=== PATIENT | male | born 1940 | race Caucasian/White ===

== ENCOUNTER 2016-07-14 19:41 | Emergency (ER) | payer OTHER, MEDICARE ==
[~2016-07-14] VITALS: Ht 177.8 cm; Wt 122.5 kg
--- NOTE | ~2016-07-14 | EKG ---
[place] [address] [facility] [place] [address] ELECTROCARDIOGRAM REPORT Name: JAGUAR SAMANO [facility]: [id number] Admission: 07/14/16 Attend Phys: Discharge: 07/14/16 Date of : 42 Report #: [id number] THIS REPORT FOR: //name// 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: Truck Crane Operator Helper: CHANDRA : 1940 Requested By: Divya De La Rosa Order Number: [id number] MD: Stevie Charlton Measurements Intervals [place] Rate: 112 P: 117 [place]: 205 QRS: 217 QRSD: 291 T: QT: QTc: 0 Interpretive Statements Ventricular-paced complexes No further analysis attempted due to paced rhythm Compared to ECG 04/29/2015 07:24:13 No significant changes Electronically Signed On 07-15-2016 15:09:31 CDT by Stevie Charlton [email or web address] <ELECTRONICALLY SIGNED> By: Stevie Charlton MD, [facility] 07/15/16 1509 41 41 Stevie Charlton MD, FACC /EPI
[~2016-07-14 19:41] MED LIST: ALDACTONE25 MG PO; AMLODIPINE BESY10 MG PO; ATORVASTATIN CA40 MG PO; AVAPRO300 MG PO; BYSTOLIC 5 MG5 M1 PO; COREG25 MG PO; FENOFIBRATE160 MG PO; FUROSEMIDE 40 M40 M1 PO; HYTRIN 2MG CAPSU2 MG PO; NORCO 5-325 TA1 EACH PO; TERAZOSIN HCL10 MG PO; UNKNOWN BP MED; UNKNOWN CHOLESTEROL; UNKNOWN DIURETIC
[2016-07-14] MEDS ORDERED: PERCOCET 5-3251 EACH PO (19:43)
[2016-07-14 20:48] LABS: BASOPHILS 0.5 % (0.0-2.0); EOSINOPHILS 2.5 % (0.0-3.0); HEMATOCRIT 41.2 % (42.0-52.0); HEMOGLOBIN 14.1 gm/dL (14.0-18.0); LYMPHOCYTES 25.9 % (24.0-44.0); MCH 31.8 pg (26.0-34.0); MCHC 34.1 g/dL (28.0-37.0); MCV 93.3 fL (80.0-100.0); MONOCYTES 7.7 % (1.0-8.0); PLATELET COUNT 188 thou/uL (150-400); POLYS 63.4 % (36.0-66.0); RBC 4.42 mil/uL (4.50-6.00); WBC 9.4 thou/uL (4.0-11.0)
[2016-07-14 20:49] LABS: MANUAL DIFF NO
[2016-07-14 20:50] LABS: ANION GAP 9 mmol/L (7-16); BUN 22 mg/dL (7-18); CALCIUM 9.2 mg/dL (8.5-10.1); CHLORIDE 105 mmol/L (98-107); CO2 26 mmol/L (21-32); CREATININE 1.2 mg/dL (0.7-1.3); GLUCOSE 125 mg/dL (74-106); POTASSIUM 4.4 mmol/L (3.5-5.1); SODIUM 140 mmol/L (136-145)
[2016-07-14] MEDS ORDERED: ALDACTONE25 MG PO (20:51)
[2016-07-14 21:01] LABS: ALBUMIN 3.5 g/dL (3.4-5.0); ALKALINE PHOSPHATASE 63 U/L (46-116); NT-PRO BRAIN NAT PEPTIDE 171 pg/mL (<300); SGOT 16 U/L (15-37); SGPT 29 U/L (30-65); TOTAL BILIRUBIN 0.3 mg/dL (<0.1-1.0); TOTAL PROTEIN 7.5 g/dL (6.4-8.2); TROPONIN-I < 0.04 ng/mL (<0.04-0.07)
[2016-07-14 21:06] LABS: APTT 27.8 Seconds (24.5-32.8); PROTIME 10.3 Seconds (9.3-11.4)
[2016-07-14] MEDS ORDERED: MECLIZINE HCL25 MG PO (21:44)
== END 2016-07-14 22:05 | disposition home or self-care (01) ==
LOC: ER 19:41
PROVIDERS: Emergency Medicine
DX: R42 Dizziness and giddiness (principal); R53.83 Other fatigue; I10 Essential (primary) hypertension; I50.9 Heart failure, unspecified; I25.10 Atherosclerotic heart disease of native coronary artery without angina pectoris; I44.7 Left bundle-branch block, unspecified; G50.0 Trigeminal neuralgia; Z85.828 Personal history of other malignant neoplasm of skin

== ENCOUNTER 2017-12-21 16:00 | Emergency (ER) | payer OTHER, MEDICARE ==
[~2017-12-21] VITALS: Ht 180.3 cm; Wt 108.9 kg
[~2017-12-21 16:00] MED LIST changes: +CARBAMAZEPINE200 M5 PO; +HYDROCODON-ACE1 EAC8 PO; +MECLIZINE HCL25 MG PO; +PERCOCET 5-3251 EACH PO; +TYLENOL PM EX-1 EACH PO
[2017-12-21] MEDS ORDERED: BISACODYL SUPP10 MG RECTAL (17:19)
[2017-12-21] MEDS ORDERED: MIRALAX17 GM PO (17:19)
== END 2017-12-21 17:47 | disposition left against medical advice (07) ==
LOC: ER 16:00
DX: K59.00 Constipation, unspecified (principal); I11.0 Hypertensive heart disease with heart failure; I50.9 Heart failure, unspecified; I42.9 Cardiomyopathy, unspecified; I25.10 Atherosclerotic heart disease of native coronary artery without angina pectoris; E78.5 Hyperlipidemia, unspecified; I44.7 Left bundle-branch block, unspecified; E66.9 Obesity, unspecified; Z68.33 Body mass index [BMI] 33.0-33.9, adult

== ENCOUNTER 2018-01-22 15:00 | Emergency (ER) | payer OTHER, MEDICARE ==
[~2018-01-22] VITALS: Ht 180.3 cm; Wt 108.9 kg
--- NOTE | ~2018-01-22 | EKG ---
[address] [place] [address] ELECTROCARDIOGRAM REPORT Name: JAGUAR SAMANO [facility]: [facility] [id number] Admission: 01/22/18 Attend Phys: Discharge: 01/22/18 Date of : 42 Report #: [id number] THIS REPORT FOR: //name// [facility] ED Test Date: 2018-01-22 Test Time: 17:56:58 Pat Name: JAGUAR SAMANO Department: Room: Gender: Strategy Consultant: : 1940 Requested By: Li Quezada Order Number: [id number] MD: Stevie Charlton Measurements Intervals [place] Rate: 69 P: 43 FL: 183 QRS: 185 QRSD: 188 T: 39 QT: 479 QTc: 514 Interpretive Statements Atrial-sensed ventricular-paced rhythm No further analysis attempted due to paced rhythm Compared to ECG 12/17/2017 07:32:55 No significant changes Electronically Signed On 01-23-2018 8:49:22 CDT by Stevie Charlton [email or web address] <ELECTRONICALLY SIGNED> By: Stevie Charlton MD, [facility] 01/23/18 0849 55 55 Stevie Charlton MD, FACC /EPI
[~2018-01-22 15:00] MED LIST changes: +BISACODYL SUPP10 MG RECTAL; +MIRALAX17 GM PO
[2018-01-22] MEDS ORDERED: EDARBYCLOR 40-1 EACH PO (15:07)
[2018-01-22] MEDS ORDERED: ASPIR 8181 MG PO (15:08)
[2018-01-22 16:41] LABS: ABSOLUTE NEUTROPHILS 5.5 thou/uL (1.4-8.2); BASOPHILS 0.8 % (0.0-2.0); EOSINOPHILS 1.4 % (0.0-3.0); HEMATOCRIT 42.3 % (42.0-52.0); HEMOGLOBIN 14.8 gm/dL (14.0-18.0); LYMPHOCYTES 24.1 % (24.0-44.0); MCV 94.3 fL (80.0-100.0); MONOCYTES 9.1 % (1.0-8.0); PLATELET COUNT 178 thou/uL (150-400); POLYS 64.6 % (36.0-66.0); RBC 4.49 mil/uL (4.50-6.00); RDW 13.9 % (10.5-14.5); WBC 8.6 thou/uL (4.0-11.0)
[2018-01-22 16:54] LABS: ANION GAP 9 mmol/L (7-16); BUN 51 mg/dL (7-18); CALCIUM 9.4 mg/dL (8.5-10.1); CHLORIDE 99 mmol/L (98-107); CO2 29 mmol/L (21-32); CREATININE 1.6 mg/dL (0.7-1.3); GLUCOSE 119 mg/dL (74-106); POTASSIUM 3.3 mmol/L (3.5-5.1); SODIUM 137 mmol/L (136-145)
[2018-01-22 17:03] LABS: TROPONIN-I <0.06 ng/mL (<0.06)
[2018-01-22 18:10] VITALS: BP 134/82
== END 2018-01-22 18:12 | disposition home or self-care (01) ==
LOC: ER 15:00
PROVIDERS: Student in an Organized Health Care Education/Training Program
DX: R42 Dizziness and giddiness (principal); T50.905A Adverse effect of unspecified drugs, medicaments and biological substances, initial encounter; I11.0 Hypertensive heart disease with heart failure; I50.9 Heart failure, unspecified; I42.8 Other cardiomyopathies; I25.10 Atherosclerotic heart disease of native coronary artery without angina pectoris; E78.5 Hyperlipidemia, unspecified; G50.0 Trigeminal neuralgia; Z85.828 Personal history of other malignant neoplasm of skin; Y92.89 Other specified places as the place of occurrence of the external cause

== ENCOUNTER 2018-06-06 09:14 | Emergency (ER) | payer OTHER, MEDICARE ==
[~2018-06-06] VITALS: Ht 180.3 cm; Wt 99.8 kg
[~2018-06-06 09:14] MED LIST changes: +ASPIR 8181 MG PO; +EDARBYCLOR 40-1 EACH PO
[2018-06-06] MEDS ORDERED: UNICOMPLEX M TA1 TA1 PO (09:40)
[2018-06-06] MEDS ORDERED: FISH OIL 1,001000 M2 PO (09:40)
[2018-06-06 10:43] LABS: ABSOLUTE NEUTROPHILS 7.5 thou/uL (1.4-8.2); BASOPHILS 0.8 % (0.0-2.0); EOSINOPHILS 0.7 % (0.0-3.0); HEMATOCRIT 40.8 % (42.0-52.0); HEMOGLOBIN 13.9 gm/dL (14.0-18.0); LYMPHOCYTES 22.7 % (24.0-44.0); MCH 33.2 pg (26.0-34.0); MCHC 34.2 g/dL (28.0-37.0); MCV 97.1 fL (80.0-100.0); MONOCYTES 9.1 % (1.0-8.0); PLATELET COUNT 220 thou/uL (150-400); POLYS 66.7 % (36.0-66.0); RDW 13.6 % (10.5-14.5); WBC 11.2 thou/uL (4.0-11.0)
[2018-06-06 10:48] LABS: URINE BILIRUBIN NEGATIVE (Negative); URINE BLOOD NEGATIVE (Negative); URINE CLARITY CLEAR; URINE COLOR YELLOW; URINE GLUCOSE-RANDOM* NEGATIVE (Negative); URINE KETONES NEGATIVE (Negative); URINE LEUKOCYTES-REFLEX NEGATIVE (Negative); URINE NITRITE-REFLEX NEGATIVE (Negative); URINE PROTEIN (DIPSTICK) NEGATIVE (Negative); URINE UROBILINOGEN 0.2 E.U./dl (0.2-1.0)
[2018-06-06 10:55] LABS: ANION GAP 6 mmol/L (7-16); BUN 35 mg/dL (7-18); CALCIUM 9.3 mg/dL (8.5-10.1); CHLORIDE 99 mmol/L (98-107); CO2 33 mmol/L (21-32); CREATININE 1.5 mg/dL (0.7-1.3); GLUCOSE 111 mg/dL (74-106); SODIUM 138 mmol/L (136-145)
[2018-06-06 11:04] LABS: ALBUMIN 3.5 g/dL (3.4-5.0); MAGNESIUM 1.9 mg/dL (1.8-2.4); SGOT 19 U/L (15-37); SGPT 24 U/L (30-65); TOTAL BILIRUBIN 0.4 mg/dL (<0.1-1.0); TOTAL PROTEIN 7.5 g/dL (6.4-8.2); TROPONIN-I <0.06 ng/mL (<0.06)
[2018-06-06] MEDS ORDERED: ZPAK PO (11:25)
[2018-06-06] MEDS ORDERED: KLOR-CON 1010 MEQ PO (11:39)
[2018-06-06 12:02] VITALS: BP 124/71
--- NOTE | 2018-06-08 13:21 | EKG ---
[facility] [place] [address] ELECTROCARDIOGRAM REPORT Name: JAGUAR SAMANO [facility]: [facility] [id number] ������������������ Admission: 06/06/18 ������������������ Attend Phys: Discharge: 06/06/18 ������������������ Date of : 42 Report #: [id number] ����������������������������������������������������������������� [id number] THIS REPORT FOR: //name// [facility] ED Test Date: 2018-06-06 Test Time: 11:11:28 Pat Name: JAGUAR SAMANO Department: Room: Gender: Waiter/Waitress Head: SANDYWVLUZ : 1940 Requested By: Aldo Dobbins Order Number: [id number] MD: Stevie Charlton Measurements Intervals [place] Rate: 73 P: -9 [place]: 177 QRS: 184 QRSD: 182 T: 96 QT: 482 QTc: 532 Interpretive Statements Atrial-sensed ventricular-paced complexes No further analysis attempted due to paced rhythm Baseline wander in lead(s) V2 Compared to ECG 01/22/2018 17:56:58 No significant changes Electronically Signed On 06-08-2018 13:21:12 CDT by Stevie Charlton [email or web address] ��������������������������������������������� <ELECTRONICALLY SIGNED> ���������������������������������������� By: Stevie Charlton MD, FACC ��������������������������������������������� 06/08/18 1321 1111 1111 Stevie Charlton MD, [facility] /EPI
== END 2018-06-06 12:02 | disposition home or self-care (01) ==
LOC: ER 09:14
PROVIDERS: Emergency Medicine
DX: J18.9 Pneumonia, unspecified organism (principal); E87.6 Hypokalemia; D72.829 Elevated white blood cell count, unspecified; I11.0 Hypertensive heart disease with heart failure; I50.9 Heart failure, unspecified; E78.5 Hyperlipidemia, unspecified; E66.9 Obesity, unspecified; Z68.30 Body mass index [BMI] 30.0-30.9, adult

== ENCOUNTER 2018-11-19 20:26 | Emergency (ER) | payer OTHER, MEDICARE ==
[~2018-11-19] VITALS: Ht 180.3 cm; Wt 108.9 kg
[~2018-11-19 20:26] MED LIST changes: +FISH OIL 1,001000 M2 PO; +KLOR-CON 1010 MEQ PO; +UNICOMPLEX M TA1 TA1 PO; +ZPAK PO
[2018-11-19] MEDS ORDERED: IRON325 PO (21:01)
[2018-11-19 22:52] VITALS: BP 156/72
[2018-11-19] MEDS ORDERED: CLONIDINE0.1 PO (23:08)
--- NOTE | 2018-11-20 08:39 | EKG ---
[place] [address] [facility] [place] [address] ELECTROCARDIOGRAM REPORT Name: JAGUAR SAMANO [facility]: [facility] [id number] Admission: 11/19/18 Attend Phys: Discharge: 11/19/18 Date of : 42 Report #: [id number] THIS REPORT FOR: //name// [facility] ED Test Date: 2018-11-19 Test Time: 22:09:34 Pat Name: JAGUAR SAMANO Department: Room: Gender: Manager Client Support: ZOIE : 1940 Requested By: Aldo Dobbins Order Number: [id number] MD: Filiberto Guerrero Measurements Intervals [place] Rate: 74 P: 9 IA: 178 QRS: 213 QRSD: 170 T: 93 QT: 433 QTc: 481 Interpretive Statements Atrial-sensed ventricular-paced rhythm No further analysis attempted due to paced rhythm Compared to ECG 06/06/2018 11:11:28 No significant changes Electronically Signed On 11-20-2018 8:39:16 CDT by Filiberto Guerrero [email or web address] <ELECTRONICALLY SIGNED> By: Filiberto Guerrero MD 11/20/18 0839 08 08 Filiberto Guerrero MD /LADI
== END 2018-11-19 23:00 | disposition home or self-care (01) ==
LOC: ER 20:26
DX: I11.0 Hypertensive heart disease with heart failure (principal); I50.9 Heart failure, unspecified; I42.9 Cardiomyopathy, unspecified; I25.10 Atherosclerotic heart disease of native coronary artery without angina pectoris; E78.5 Hyperlipidemia, unspecified; E66.9 Obesity, unspecified; Z68.33 Body mass index [BMI] 33.0-33.9, adult

== ENCOUNTER 2019-02-15 07:26 | Emergency (ER) | payer OTHER, MEDICARE ==
[~2019-02-15] VITALS: Ht 177.8 cm; Wt 111.1 kg
[~2019-02-15 07:26] MED LIST changes: +CLONIDINE0.1 PO; +IRON325 PO
[2019-02-15 07:44] VITALS: BP 175/79
== END 2019-02-15 07:57 | disposition home or self-care (01) ==
LOC: ER 07:26
DX: R09.81 Nasal congestion (principal); I11.0 Hypertensive heart disease with heart failure; I50.9 Heart failure, unspecified; I25.10 Atherosclerotic heart disease of native coronary artery without angina pectoris; E66.9 Obesity, unspecified; Z68.35 Body mass index [BMI] 35.0-35.9, adult

== ENCOUNTER 2019-03-09 12:18 | Inpatient (IN) | payer OTHER, MEDICARE ==
[~2019-03-09] VITALS: Ht 180.3 cm; Wt 111.1 kg
--- NOTE | ~2019-03-09 | HC ---
[facility] [place] [address] CONSULTATION Name: JAGUAR SAMANO Room #: 215-P ADM IN M.R.#: [id number] Admission: 03/09/19 Attend Phys: Sam Fall MD Discharge: Date of : 42 Report #: [id number] THIS REPORT FOR: //name// CC: Sam ALVARENGA unknown DATE OF SERVICE: 03/10/2019 HISTORY OF PRESENT ILLNESS: This is a 78-year-old male patient who was seen by me for altered mental status. The patient gives a history that he is on carbamazepine for the trigeminal neuralgia for a long period of time. He messed up the dosages and he became confused and now he is better. There is nobody else is here, so it is very difficult to confirm the history. He said he has a pacemaker, which is incompatible with MRI. REVIEW OF SYSTEMS: Positive for trigeminal neuralgia. He believes that happens in relation to taking the wrong medication. He feels back to his baseline now. He has a history of taking other medications including opioids. He does have some kidney problems. This was his relevant 14-point review of system, which was carried out. PAST MEDICAL HISTORY: Positive for trigeminal neuralgia. He does not know the name of his neurologist, but he has one. He said even gamma knife was tried on him, but then they decided not to do the gamma knife on him. He had an episode of syncope, the etiology of which was not clear. FAMILY HISTORY: Unremarkable. SOCIAL HISTORY: He denies that he abuses any alcohol. PHYSICAL EXAMINATION: NEUROLOGIC: Indicates he is alert, responsive. His memory does look somewhat poor. His fund of knowledge is also poor. His cranial nerve examination and neuromuscular examinations appear unremarkable. It appeared to be symmetrical. There is no meningeal sign. There is no carotid bruit. VITAL SIGNS: His blood pressure is 122/55, respirations 16, pulse is 70, and temperature is 98.7. LABORATORY DATA: His white count is normal at 7.5. He did have a CT scan of the head, which did not show any definite abnormality. IMPRESSION AND PLAN: The patient with trigeminal neuralgia who claims that he had some altered mental status when he took the wrong medications and the wrong dosages. He does not think he needs any further workup. Rather he told me that he is convinced it is a medication and he will not like to have the further [facility] [address] [place] [address] CONSULTATION Name: JAGUAR SAMANO Room #: 215-P [facility] IN M.R.#: [id number] Admission: 03/09/19 Attend Phys: Sam Fall MD Discharge: Date of : 41 Report #: [id number] testing. I will talk to you tomorrow. I think it may be the best is to send him back to his own neurologist in that circumstance. By: 2053 0022 Sergio Christopher MD /nt
[2019-03-09 12:19] VITALS: BP 120/59
[2019-03-09 12:49] LABS: ABSOLUTE NEUTROPHILS 5.8 thou/uL (1.4-8.2); BASOPHILS 0.6 % (0.0-2.0); HEMATOCRIT 45.3 % (42.0-52.0); HEMOGLOBIN 15.4 gm/dL (14.0-18.0); LYMPHOCYTES 19.4 % (24.0-44.0); MCH 32.7 pg (26.0-34.0); MONOCYTES 9.2 % (1.0-8.0); PLATELET COUNT 167 thou/uL (150-400); POLYS 70.8 % (36.0-66.0); RBC 4.71 mil/uL (4.50-6.00); RDW 13.5 % (10.5-14.5); WBC 8.1 thou/uL (4.0-11.0)
[2019-03-09 12:53] LABS: ANION GAP 8 mmol/L (7-16); BUN 60 mg/dL (7-18); CALCIUM 9.5 mg/dL (8.5-10.1); CHLORIDE 100 mmol/L (98-107); CO2 33 mmol/L (21-32); CREATININE 2.2 mg/dL (0.7-1.3); GLUCOSE 132 mg/dL (74-106); SODIUM 141 mmol/L (136-145)
--- NOTE | 2019-03-09 12:56 | NUR ---
PT. CAREGIVER/ROOMMATE AT BEDSIDE WITH INFORMATION REGARDING PT. VISIT TO ER TODAY. PT. MAY HAVE POSSIBLY MIXED UP, NOT TAKEN OR TAKEN TOO MUCH OF HIS DAILY MEDICATION. PT. CAREGIVER/ROOMMATE REPORTS PT. PREFERS TO ORGANIZE HIS MEDS. VS HAVING OTHERS HELP WITH ADMINISTRATION. IN THE PAST, PT. HAS STOPPED TAKING MEDS. IF HE FELT HE NO LONGER NEEDED TO TAKE THE MEDICATION. AT THIS TIME, NO MED. LIST IS AVAILABLE TO THE STAFF. PT. ON CART, ON MONITOR. ORDERS RECEIVED AND CARRIED OUT.
[2019-03-09 13:04] LABS: ALBUMIN 3.9 g/dL (3.4-5.0); SGOT 13 U/L (15-37); SGPT 23 U/L (30-65); TOTAL BILIRUBIN 0.5 mg/dL (<0.1-1.0); TOTAL PROTEIN 7.9 g/dL (6.4-8.2); TROPONIN-I <0.06 ng/mL (<0.06)
--- NOTE | 2019-03-09 14:16 | NUR ---
PT. PACEMAKER INTERROGATION COMPLETED, AND REPORT RECEIVED AND PROVIDED TO ANN DOMINGUEZ.
[2019-03-09] MEDS ORDERED: CARBAMAZEPINE200 M2 PO (14:57)
[2019-03-09] MEDS ORDERED: LIPITOR40 MG PO ×2 (14:58→16:48)
[2019-03-09] MEDS ORDERED: FUROSEMIDE 20 M20 M1 PO (14:58)
[2019-03-09 15:31] VITALS: BP 101/50
[2019-03-09 15:42] VITALS: BP 128/66
[2019-03-09 16:15] VITALS: BP 142/72
[2019-03-09] MEDS ORDERED: DEMADEX20 MG PO (16:40)
[2019-03-09] MEDS ORDERED: COREG25 M1 PO (16:41)
[2019-03-09] MEDS ORDERED: VITAMIN B-121000 MC2 PO (16:42)
[2019-03-09] MEDS ORDERED: FUROSEMIDE 40 M40 M1 PO (16:43)
[2019-03-09] MEDS ORDERED: ASPIR 8181 M1 PO (16:47)
[2019-03-09] MEDS ORDERED: EDARBYCLOR 40-1 EAC1 PO (16:48)
[2019-03-09 16:49] LABS: URINE BILIRUBIN NEGATIVE (Negative); URINE BLOOD NEGATIVE (Negative); URINE CLARITY SL CLOUDY; URINE COLOR YELLOW; URINE GLUCOSE-RANDOM* NEGATIVE (Negative); URINE KETONES NEGATIVE (Negative); URINE LEUKOCYTES-REFLEX 2+ (Negative); URINE NITRITE-REFLEX NEGATIVE (Negative); URINE PROTEIN (DIPSTICK) NEGATIVE (Negative); URINE UROBILINOGEN 0.2 E.U./dl (0.2-1.0)
[2019-03-09] MEDS ORDERED: FLONASE 0.05%50 MCG NASAL (16:49)
[2019-03-09 16:57] LABS: CASTS None Seen /LPF (None Seen); SQUAMOUS 0-3 Few /LPF (0-3)
[2019-03-09 16:58] LABS: AMORPHOUS PHOSPHATES Moderate /LPF (None Seen); BACTERIA-REFLEX 1-9 Few /HPF (None Seen); URINE RBC 0-2 Rare /HPF (0-2)
--- NOTE | 2019-03-09 20:11 | NUR ---
PT. ARRIVED AT FLOOR CLOSE TO 1645; PT. AOX4; NO C/O PAIN; ABLE TO AMBULATE FROM STRECHER TO BED WITH ASSISTANCE; VS WNL; WAREHOUSING TECHNICIAN AT THE BED SIDE; MEDICATION INGA AROUND 1730; HOME MEDICATION UPDATE; WAREHOUSING TECHNICIAN NOTIFIED; EMAR UPDATE; ADMISSION PERFORMED; VPACED ON THE MONITOR; ABLE TO VOID IN URINAL; ASSESSMENT CHARGED; FOLLOWING POC; PASSED ON REPORT;
[2019-03-09 20:16] VITALS: BP 107/52; BP 110/57; BP 118/54
[2019-03-10 04:43] LABS: CALCIUM 8.7 mg/dL (8.5-10.1); MAGNESIUM 1.9 mg/dL (1.8-2.4); POTASSIUM 3.2 mmol/L (3.5-5.1)
[2019-03-10 04:45] VITALS: BP 156/104
[2019-03-10 04:54] LABS: ABSOLUTE NEUTROPHILS 4.8 thou/uL (1.4-8.2); BASOPHILS 0.3 % (0.0-2.0); EOSINOPHILS 0.4 % (0.0-3.0); HEMATOCRIT 43.4 % (42.0-52.0); HEMOGLOBIN 14.7 gm/dL (14.0-18.0); LYMPHOCYTES 26.5 % (24.0-44.0); MCH 33.1 pg (26.0-34.0); MCHC 33.9 g/dL (28.0-37.0); MCV 97.7 fL (80.0-100.0); MONOCYTES 8.5 % (1.0-8.0); PLATELET COUNT 169 thou/uL (150-400); POLYS 64.3 % (36.0-66.0); RBC 4.45 mil/uL (4.50-6.00); RDW 13.4 % (10.5-14.5); WBC 7.5 thou/uL (4.0-11.0)
--- NOTE | 2019-03-10 06:42 | NUR ---
ASSUMED PT CARE AT 1900. VSS. PT A&0X4. STABLE ON HIS FEET. PT EAGER TO GO HOME THIS AM. PT RESTED WELL ALL NIGHT, NO COMPLAINTS OF PAIN OR DISCOMFORT, WILL CONTINUE TO MONITOR PER POC.
[2019-03-10 08:00] VITALS: BP 130/80
--- NOTE | 2019-03-10 08:54 | EKG ---
[address] [address] ELECTROCARDIOGRAM REPORT Name: JAGUAR SAMANO Room #: 215-P ADM IN M.R.#: [id number] Admission: 03/09/19 Attend Phys: Sam Fall MD Discharge: Date of : 41 Report #: [id number] THIS REPORT FOR: //name// [facility] ED Test Date: 2019-03-09 Test Time: 12:24:35 Pat Name: JAGUAR SAMANO Department: Room: [facility] Gender: M Agricultural Education Teacher: SRIKANTH : 1940 Requested By: Agnes Choi Order Number: [id number] MD: Stevie Charlton Measurements Intervals [place] Rate: 65 P: 36 IA: 164 QRS: 221 QRSD: 181 T: 73 QT: 473 QTc: 492 Interpretive Statements Ventricular-paced complexes No further analysis attempted due to paced rhythm Compared to ECG 11/19/2018 22:09:34 No significant change was found Electronically Signed On 03-10-2019 8:54:23 HVAC DESIGN MECHANICAL ENGINEER by Stevie Charlton [email or web address] <ELECTRONICALLY SIGNED> By: Stevie Charlton MD, [facility] 03/10/19 0854 1224 1224 Stevie Charlton MD, [facility] /EPI
--- NOTE | 2019-03-10 10:06 | 2DMMODE ---
[facility] [address] [place] [address] 2 D/M-MODE ECHOCARDIOGRAM Name: JAGUAR SAMANO Room #: 215-P ADM IN M.R.#: [id number] Admission: 03/09/19 Attend Phys: Sam Fall MD Discharge: Date of : 41 Report #: [id number] THIS REPORT FOR: //name// APPROVED REPORT Study performed: 03/10/2019 09:27:05 EXAM: Comprehensive 2D, Doppler, and color-flow Echocardiogram Patient Location: Bedside Room #: 215 Status: routine BSA: 2.30 HR: 74 bpm BP: 138/80 mmHg Rhythm: Pacemaker Other Information Study Quality: Adequate Indications ICD: Syncope Cardiomyopathy Hypertension/HDD 2D Dimensions RVDd: 41.07 mm IVSd: 15.44 (7-11mm) LVOT Diam: 20.81 (18-24mm) LVDd: 57.29 mm PWd: 15.64 (7-11mm) Ascending Ao: 38.83 (22-36mm) LVDs: 47.53 (25-40mm) Aortic Root: 40.39 mm IVC: 15.00 mm Volumes Left Atrial Volume (Systole) Single Plane 4CH: 100.24 mL Single Plane 2CH: 74.93 mL LA ESV Index: 40.00 mL/m2 Aortic Valve AoV Peak Sony.: 1.33 m/s AO Peak Gr.: 7.03 mmHg LVOT Max P.18 mmHg LVOT Max V: 1.02 m/s LAWANDA Vmax: 2.62 cm2 Mitral Valve [facility] [address] [place] [address] 2 D/M-MODE ECHOCARDIOGRAM Name: JAGUAR SAMANO Room #: 215-P [facility]#: [id number] Admission: 03/09/19 Attend Phys: Sam Fall MD Discharge: Date of : 41 Report #: [id number] E/A Ratio: 0.5 MV Decel. Time: 328.22 ms MV E Max Sony.: 0.42 m/s MV A Sony.: 0.92 m/s MV PHT: 95.18 ms IVRT: 189.16 ms Pulmonary Valve PV Peak Sony.: 0.72 m/s PV Peak Gr.: 2.05 mmHg Pulmonary Vein P Vein S: 0.64 m/s P Vein A: 0.28 m/s P Vein D: 0.25 m/s P Vein A Dur.: 106.1 msec P Vein S/D Ratio: 2.56 Tricuspid Valve TR Peak Sony.: 2.50 m/s TR Peak Gr.: 24.98 mmHg PA Pressure: 30.00 mmHg Left Ventricle Left ventricle is at the upper limits of normal. There is global hypokinesis of the left ventricle. Mild to moderate concentric left ventricular hypertrophy. Left ventricular ejection fraction is moderately decreased. LVEF is 30-35%. Grade I - abnormal relaxation pattern. Right Ventricle Right ventricle is at the upper limits of normal. The right ventricular systolic function is normal. Device lead is present in the right ventricle. Atria Left atrium is dilated. Right atrium is dilated. Aortic Valve The aortic valve is normal in structure. Aortic valve is calcified. Trace to mild aortic regurgitation. There is no aortic valvular stenosis. Mitral Valve The mitral valve is normal in structure. Mild mitral regurgitation. No evidence of mitral valve stenosis. Tricuspid Valve The tricuspid valve is normal in structure. There is trace to mild [facility] [address] [place] [address] 2 D/M-MODE ECHOCARDIOGRAM Name: JAGUAR SAMANO Room #: 215-P ADM IN M.R.#: [id number] Admission: 03/09/19 Attend Phys: Sam Fall MD Discharge: Date of : 42 Report #: [id number] tricuspid regurgitation. Estimated PAP 30 mmHg. There is mild pulmonary hypertension. Pulmonic Valve The pulmonary valve is normal in structure. Trace pulmonic regurgitation. Great Vessels The aortic root is normal in size. IVC is normal in size and collapses >50% with inspiration. Pericardium There is no pericardial effusion. <Conclusion> Left ventricle is at the upper limits of normal. Mild to moderate concentric left ventricular hypertrophy. Left ventricular ejection fraction is moderately decreased. There is global hypokinesis of the left ventricle. LVEF is 30-35%. Grade I - abnormal relaxation pattern. Right ventricle is at the upper limits of normal. Device lead is present in the right ventricle. Left atrium is dilated. Right atrium is dilated. The aortic valve is normal in structure. Aortic valve is calcified. Trace to mild aortic regurgitation. Mild mitral regurgitation. There is trace to mild tricuspid regurgitation. Estimated PAP 30 mmHg. There is mild pulmonary hypertension. The aortic root is normal in size. There is no pericardial effusion. <ELECTRONICALLY SIGNED> By: Ricky Wyatt MD, FACC 03/10/19 1006 1006 1006 Ricky Wyatt MD, FACC /INF
[2019-03-10 12:23] VITALS: BP 121/64
--- NOTE | 2019-03-10 12:39 | NUR ---
ORDERS RECEIVED FOR EVAL AND TREAT. SPOKE WITH Pt WHO STATES HAVING NO DIFFICULTY WITH MOBILITY AND DOES NOT FEEL WEAK. STATES HE IS NOT DIZZY AND HE DID NOT FAINT. OBSERVED Pt STAND AND AMBULATE IN ROOM WITHOUT DIFFICULTY. Pt DECLINING FORMAL P.T. EVAL BUT APPEARS SAFE FOR HOME WITH MEDICALLY CLEAR.
[2019-03-10 16:00] VITALS: BP 142/75
--- NOTE | 2019-03-10 17:49 | NUR ---
PT ALERT AND ORIENTED. VSS. DENIED HAVING PAIN OR DISCOMFORT. SEEN BY DR. ROSS AND DR. HUNT. ORDERS NOTED. WILL CONTINUE TO MONITOR.
[2019-03-10 19:46] VITALS: BP 120/55
[2019-03-10 23:44] LABS: AMP/METHAMP Negative (Negative); BARBITURATES Negative (Negative); BENZODIAZEPINES Negative (Negative); COCAINE Negative (Negative); METHADONE Negative (Negative); OPIATES Negative (Negative); PCP Negative (Negative)
--- NOTE | 2019-03-11 01:39 | NUR ---
ASSESSMENTS CHARTED, MEDS NOTED GIVEN. PATIENT CAME IN TODAY AFTER SYNCOPAL EPISODE AT HOME. FEELS MEMORY IS FUZZY, CAN NOT ALWAYS REMEMBER NAMES AND PEOPLE. FEELS THAT HIS MEDICINES ARE MAKING HIM UNABLE TO REMEMBER SITUATIONS. PATIENT LIVES AT HOME WITH A CAREGIVER. PT AV PACED ON TELEMETRY. PATIENT HAS AN ICD, WHICH WAS INTERIGATED YESTERDAY BY [employer]. PATIENT UP AT YARON IN ROOM. DENIES PAIN OR CONCERNS OTHER THAN FEELIING CONSTIPATED. LAXATIVE GIVEN CHARTED. PLAN OF CARE IS FOR PATIENT TO RETURN HOME ONCE IT IS ESTABLISHED THAT HE IS COGNITIVELY STABLE.
[2019-03-11 04:45] VITALS: BP 144/74
[2019-03-11 08:47] LABS: CALCIUM 8.9 mg/dL (8.5-10.1); CREATININE 1.6 mg/dL (0.7-1.3); POTASSIUM 3.6 mmol/L (3.5-5.1)
[2019-03-11 09:01] VITALS: BP 119/88
[2019-03-11 10:26] VITALS: BP 119/88
--- NOTE | 2019-03-11 10:29 | NUR ---
Case opened to follow for dc planning. Pt dcing home today. Director Of Religious Activities visited with the pt at bedside. He is a&ox4 and indicates that he lives independently in his own home. He owns a large estate and has a friend Rebecca who lives there and helps out with the housekeeping, laundry and shopping. She can help with taking him to the doctor and meal prep if needed. He is normally indep with gait and adl's and drives. He eats out daily. 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 He also has a joel named Betty who lives on site and cares for the property; yard work, maintinance and landscaping. Betty's girlfriend is around alot as well as and she is in the nursing field. He has 8 cats and enjoys having Rebecca and Betty around so he does not live alone. He does trust Rebecca and feels she can assist with med mngt and meal prep if needed. HH referral discussed. He is agreeable and plans to be homebound for a week or so till he follows up with Dr. Wyatt. He denies a preference. Will ask for RN and TREKKING GUIDE visits for med mngt, education, community resources should he need additional help in the future. He does not feel his friends are taking advantage of him financially but has been generous with them in the past. Referral called to [facility] as they cover his area and accept his insurance. Pt reports his friends will pick him up around 1pm today. Case discussed with the attending and the care team. All agreeable to the dc plan.
[2019-03-11 11:52] VITALS: BP 126/70
[2019-03-11 12:03] VITALS: BP 119/88
[2019-03-11] MEDS ORDERED: DULCOLAX5 MG PO (12:28)
--- NOTE | 2019-03-11 14:02 | NUR ---
ASSESSMENT CHARTED. PT ALERT AND ORIENTED. VSS. DENIED HAVING PAIN OR DISCOMFORT. ORDERS GIVEN TO DISCHARGE PT TO HOME. DISCHARGE INSTRUCTIONS GIVEN TO PT AND THE LICENSED MASTER SOCIAL WORKER WITH THE HELP FROM DR ROSS.
--- NOTE | 2019-03-11 14:14 | NUR ---
FAXED REFERRAL TO [facility]. KIMBERLY/CIRILO CONFIRMED SHE RECEIVED REFERRAL AND WILL ACCEPT PATIENT IF FOLLOWED BY A PCP. MARY/ANGEL CONFIRMED WITH YESI FRAGOSO MD THAT HE WOULD FOLLOW PATIENT HIS PCP. SPOKE TO CALI AT [facility] WITH PCP INFORMATION. DP FAXED DC SUMMARY & ORDERS TO [facility].
--- NOTE | 2019-03-11 14:22 | NUR ---
SPOKE WITH YESI FRAGOSO AT [facility], AND DR FRAGOSO WILL FOLLOW PATIENT WITH HOME HEALTH FOR NURSING AND MEDICATION MANAGEMENT.
[2019-03-11 14:23] VITALS: BP 119/88
== END 2019-03-11 14:10 | disposition home health service (06) | DRG 682 ==
LOC: ER 12:18 → EROBS 15:21 → 2N 15:21 → ENTRNSPT 03-11 13:38 → EDTRNSPTSTS 03-11 13:41 → 2N 03-11 14:10
PROVIDERS: Nurse Practitioner; Nurse Practitioner Adult Health; Physician Assistant; Psychiatry & Neurology Psychiatry; ADMIT Hospitalist
DX: N17.9 Acute kidney failure, unspecified (principal); G92 Toxic encephalopathy; N39.0 Urinary tract infection, site not specified; I42.0 Dilated cardiomyopathy; I50.22 Chronic systolic (congestive) heart failure; I25.10 Atherosclerotic heart disease of native coronary artery without angina pectoris; I11.0 Hypertensive heart disease with heart failure; E78.5 Hyperlipidemia, unspecified; E66.9 Obesity, unspecified; E87.6 Hypokalemia; G50.0 Trigeminal neuralgia; E86.0 Dehydration; E78.00 Pure hypercholesterolemia, unspecified; Z60.2 Problems related to living alone; I25.5 Ischemic cardiomyopathy; Z79.82 Long term (current) use of aspirin; Z79.899 Other long term (current) drug therapy; Z68.34 Body mass index [BMI] 34.0-34.9, adult; Z95.810 Presence of automatic (implantable) cardiac defibrillator; Z91.14 Patient's other noncompliance with medication regimen
CPT/HCPCS: 10081

== ENCOUNTER 2019-05-12 16:59 | Emergency (ER) | payer OTHER, MEDICARE ==
[~2019-05-12] VITALS: Ht 177.8 cm; Wt 108.9 kg
[~2019-05-12 16:59] MED LIST changes: +ASPIR 8181 M1 PO; +CARBAMAZEPINE200 M2 PO; +COREG25 M1 PO; +DEMADEX20 MG PO; +DULCOLAX5 MG PO; +EDARBYCLOR 40-1 EAC1 PO; +FLONASE 0.05%50 MCG NASAL; +FUROSEMIDE 20 M20 M1 PO; +LIPITOR40 MG PO; +VITAMIN B-121000 MC2 PO
[2019-05-12] MEDS ORDERED: EDARBYCLOR 40-1 EAC1 PO (19:45)
[2019-05-12] MEDS ORDERED: DEMADEX20 MG PO (19:46)
[2019-05-12] MEDS ORDERED: TESSALON PERLE100 MG PO (20:36)
[2019-05-12] MEDS ORDERED: NORCO 5-325 TA1 EAC1 PO (20:36)
[2019-05-12 21:30] VITALS: BP 132/78
== END 2019-05-12 21:30 | disposition home or self-care (01) ==
LOC: ER 16:59
DX: J06.9 Acute upper respiratory infection, unspecified (principal); I11.0 Hypertensive heart disease with heart failure; I50.9 Heart failure, unspecified; I25.10 Atherosclerotic heart disease of native coronary artery without angina pectoris; E66.9 Obesity, unspecified; Z68.34 Body mass index [BMI] 34.0-34.9, adult

== ENCOUNTER 2019-05-17 14:47 | Emergency (ER) | payer OTHER, MEDICARE ==
[~2019-05-17] VITALS: Ht 177.8 cm; Wt 111.1 kg
[~2019-05-17 14:47] MED LIST changes: +NORCO 5-325 TA1 EAC1 PO; +TESSALON PERLE100 MG PO
[2019-05-17 14:50] VITALS: BP 149/93
[2019-05-17] MEDS ORDERED: VENTOLIN HFA 1818 GM INH (17:17)
[2019-05-17] MEDS ORDERED: AZITHROMYCIN 2250 MG PO (17:17)
== END 2019-05-17 17:28 | disposition home or self-care (01) ==
LOC: ER 14:47
DX: J06.9 Acute upper respiratory infection, unspecified (principal); J98.01 Acute bronchospasm; I11.0 Hypertensive heart disease with heart failure; I50.9 Heart failure, unspecified; I25.10 Atherosclerotic heart disease of native coronary artery without angina pectoris; E66.9 Obesity, unspecified; Z68.35 Body mass index [BMI] 35.0-35.9, adult

== ENCOUNTER → 2019-05-20 | Outpatient (CLI) | payer OTHER ==
[~2019-05-20] MED LIST changes: +AZITHROMYCIN 2250 MG PO; +CEFDINIR300 MG PO; +MUCINEX600 MG PO; +PREDNISONE 20 M20 MG PO; +VENTOLIN HFA 1818 GM INH
== END ==
LOC: SJCVCIMAG 11:38
DX: Z01.818 Encounter for other preprocedural examination (principal); I44.7 Left bundle-branch block, unspecified; I25.10 Atherosclerotic heart disease of native coronary artery without angina pectoris; I25.5 Ischemic cardiomyopathy; I10 Essential (primary) hypertension; E78.5 Hyperlipidemia, unspecified; Z79.899 Other long term (current) drug therapy

== ENCOUNTER 2019-05-22 16:22 | Inpatient (IN) | payer OTHER ==
[~2019-05-22] VITALS: Ht 185.4 cm; Wt 95.3 kg
[~2019-05-22 16:22] MED LIST changes: -CEFDINIR300 MG PO; -MUCINEX600 MG PO; -PREDNISONE 20 M20 MG PO
[2019-05-22 16:23] VITALS: BP 108/52
[2019-05-22 17:08] LABS: BE(vivo) 1.3 mmol/L (-2 to +3); HCO3 25.8 mmol/L (22.0-26.0); PCO2 40.7 mmHg (35.0-45.0); PO2 56.8 mmHg (80.0-100.0); sO2 90.1 % (92.0-98.0)
[2019-05-22 17:44] LABS: HEMATOCRIT 38.7 % (42.0-52.0); HEMOGLOBIN 12.9 gm/dL (14.0-18.0); MCH 32.2 pg (26.0-34.0); MCHC 33.3 g/dL (28.0-37.0); MCV 96.7 fL (80.0-100.0); PLATELET COUNT 236 thou/uL (150-400); RBC 4.01 mil/uL (4.50-6.00); RDW 13.9 % (10.5-14.5); WBC 13.8 thou/uL (4.0-11.0)
[2019-05-22 17:58] LABS: APTT 31.3 Seconds (24.5-32.8); PROTIME 10.6 Seconds (9.3-11.4)
[2019-05-22 18:10] LABS: ANION GAP 12 mmol/L (7-16); BUN 37 mg/dL (7-18); CALCIUM 9.2 mg/dL (8.5-10.1); CHLORIDE 102 mmol/L (98-107); CO2 29 mmol/L (21-32); CREATININE 1.5 mg/dL (0.7-1.3); GLUCOSE 102 mg/dL (74-106); SODIUM 143 mmol/L (136-145)
[2019-05-22 18:20] LABS: ALBUMIN 2.6 g/dL (3.4-5.0); MAGNESIUM 1.8 mg/dL (1.8-2.4); SGOT 24 U/L (15-37); SGPT 21 U/L (30-65); TOTAL BILIRUBIN 0.7 mg/dL (<0.1-1.0); TOTAL PROTEIN 7.2 g/dL (6.4-8.2); TROPONIN-I <0.06 ng/mL (<0.06)
[2019-05-22 18:32] VITALS: BP 101/59
[2019-05-22 18:32] LABS: ABSOLUTE NEUTROPHILS 11.3 thou/uL (1.4-8.2); METAMYELOCYTES 1 %
[2019-05-22 20:15] VITALS: BP 153/89
--- NOTE | 2019-05-23 00:43 | NUR ---
PT WAS ADMITTED TO THE UNIT [facility] THE ER AT APPROX 2000 IN A STABLE CONDITION.ADMISSION ASSESSMENT,HX AND EDUCATION DONE.PT STILL HAVE NON PRODUCTIVE LOOSE COUGH,CONT WITH HIS RT TX.PT UP ADLIB IN THE ROOM.PT ABLE TO MAKE HIS NEEDS KNOWN.PT'S O2 SAT WAS 90%,PT PUT ON 2L/NC.PT SLEEPING ON HIS BED AT THIS TIME.CALL LIGHT WITHIN REACH.
[2019-05-23 05:10] VITALS: BP 147/97
[2019-05-23 06:22] LABS: CALCIUM 9.3 mg/dL (8.5-10.1); CREATININE 1.4 mg/dL (0.7-1.3)
[2019-05-23 06:26] LABS: POTASSIUM 2.8 mmol/L (3.5-5.1)
[2019-05-23 08:48] VITALS: BP 145/80
[2019-05-23 11:19] VITALS: BP 145/72
[2019-05-23 12:03] LABS: CALCIUM 9.4 mg/dL (8.5-10.1); CREATININE 1.3 mg/dL (0.7-1.3); MAGNESIUM 1.5 mg/dL (1.8-2.4)
[2019-05-23 12:04] LABS: POTASSIUM 2.9 mmol/L (3.5-5.1)
--- NOTE | 2019-05-23 12:52 | EKG ---
[facility] [place] [address] ELECTROCARDIOGRAM REPORT Name: JAGUAR SAMANO Room #: 447-P ADM IN M.R.#: [id number] Admission: 05/22/19 Attend Phys: Dwayne Murillo MD Discharge: Date of : 42 Report #: [id number] THIS REPORT FOR: cc: Donato Joya James A. DO Park,Arden Brar MD ~ THIS REPORT FOR: //name// [facility] ED Test Date: 2019-05-22 Test Time: 16:39:26 Pat Name: JAGUAR SAMANO Department: Room: [facility] Gender: M Regulatory Affairs Portfolio Leader: ELIAS : 1940 Requested By: Addie Laurent Order Number: [id number] MD: Arden Daniels Measurements Intervals [place] Rate: 74 P: 41 NC: 185 QRS: 235 QRSD: 169 T: 90 QT: 437 QTc: 485 Interpretive Statements Atrial-sensed ventricular-paced complexes No further analysis attempted due to paced rhythm Baseline wander in lead(s) V2 Compared to ECG 03/09/2019 12:24:35 No significant changes Electronically Signed On 05-23-2019 12:51:52 SKIN TANNER by Arden Daniels [email or web address] <ELECTRONICALLY SIGNED> By: Arden Daniels MD 05/23/19 1251 1639 1639 Arden Daniels MD /EPI
[2019-05-23 18:03] LABS: HEMOGLOBIN 12.9 gm/dL (14.0-18.0); WBC 13.9 thou/uL (4.0-11.0)
[2019-05-23 18:05] LABS: HEMATOCRIT 39.4 % (42.0-52.0); MCH 31.9 pg (26.0-34.0); MCHC 32.7 g/dL (28.0-37.0); MCV 97.4 fL (80.0-100.0); RBC 4.04 mil/uL (4.50-6.00); RDW 13.8 % (10.5-14.5)
[2019-05-23 18:19] VITALS: BP 164/85
[2019-05-23 18:41] LABS: CALCIUM 8.9 mg/dL (8.5-10.1); CREATININE 1.3 mg/dL (0.7-1.3)
--- NOTE | 2019-05-23 19:01 | NUR ---
PT CARE ASSUMED AT 0700. A&Ox4. ACHS WITH NO COVERAGE NEEDED TODAY. PT CONTINUES TO ASK IF HE CAN GO HOME. PT O2 SATS AT 88% ON ROOM AIR. PT ON 3L AND SATING AT 94%. UP AT YARON. PACEMAKER. PT CONTINUES TO TAKE OFF HIS NASAL CANNULAT AFTER SHOWING TO HIM WITH THE DYNAMAP WHAT HIS O2 DOES WHEN ON OXYGEN. POTASSIUM CRITICAL AT 2.8 RECEIVED MULTIPLE DOSES OF K. AFTER A REDRAW K BACK UP TO 3.0. CALL LIGHT IN REACH. WILL CONTINUE TO MONITOR.
[2019-05-23 22:40] VITALS: BP 157/66
--- NOTE | 2019-05-24 02:17 | NUR ---
ASSUMED PT CARE AT APPROX 1900.PT C/O PAIN ON HIS L EAR FROM HIS TRIGEMINAL NEURALGIA,PT REQUESYED FOR IBUPROFRN,MISSION ANALYST ON DUTY NOTIFIED,ONETIME ORDER NOTED FOR 400MG OF IBUPROFEN.ORDER CARRIED OUT.PT'S NIGHT CLERK IN PT'S ROOM AT THIS TIME.PT UP ADLIB IN THE ROOM.PT CONT ON 3L/NC ,NEEDS CONSTANT REMINDER TO LEAVE OXYGEN ON.PT SLEEPING ON HIS BED AT THIS TIME,CALL LIGHT WITHIN REACH.
[2019-05-24 04:00] VITALS: BP 143/59
[2019-05-24 06:33] LABS: HEMATOCRIT 37.8 % (42.0-52.0); HEMOGLOBIN 12.4 gm/dL (14.0-18.0); MCHC 32.8 g/dL (28.0-37.0); MCV 97.6 fL (80.0-100.0); RBC 3.88 mil/uL (4.50-6.00); RDW 13.9 % (10.5-14.5); WBC 13.5 thou/uL (4.0-11.0)
[2019-05-24 06:49] LABS: CALCIUM 9.1 mg/dL (8.5-10.1); CREATININE 1.2 mg/dL (0.7-1.3); MAGNESIUM 1.6 mg/dL (1.8-2.4); POTASSIUM 3.3 mmol/L (3.5-5.1)
[2019-05-24 08:37] VITALS: BP 158/76
[2019-05-24 17:56] VITALS: BP 125/74
[2019-05-24 20:26] VITALS: BP 147/72
[2019-05-24 23:36] VITALS: BP 121/75
--- NOTE | 2019-05-25 01:09 | NUR ---
ASSESSMENT COMPLETED AT THE START OF SHIFT. PT ALERT AND ORIENTED. HE GAVE HIMSELF A SHOWER.PT REALLY ANXIOUS ABOUT GOING HOME TOMORROW. HE SAYS HE HAS ALOT HE HAS TO DO. PT NOTED TO BE AT AROUND 88-89% ON ROOM AIR. PLACED ON 02/2L/NC TO KEEP SATS ABOVE 93%. PT DENIES PAIN. TEMP OF 99.4 NOTED.PT WITH A PRODUCTIVE COUGH. NIGHT PROGRESSED, PT BECAME DIAPHORETIC, HR ELEVATED. EKG SHOWED A SINUS TACHYCARDIC RATE OF 129.PT CONVERSATIONAL. DENIES ANY CHESTPAIN OR CHEST TIGHTNESS.NO EDEMA NOTED. HOME MEDS RESTARTED. WILL GIVE PT ONE TME DOSE OF COREG WITH SOME SNACK. WILL CONTINUE WITH POC TILL EOS.
[2019-05-25 04:20] VITALS: BP 124/59
--- NOTE | 2019-05-25 08:14 | EKG ---
[facility] [place] [address] ELECTROCARDIOGRAM REPORT Name: JAGUAR SAMANO Room #: 447-P ADM IN M.R.#: [id number] Admission: 05/22/19 Attend Phys: Dwayne Murillo MD Discharge: Date of : 42 Report #: [id number] THIS REPORT FOR: cc: Donato Joya James A. DO Lundgren,Stevie Toure MD [facility] ~ THIS REPORT FOR: //name// [facility] Test Date: 2019-05-25 Test Time: 00:29:20 Pat Name: JAGUAR SAMANO Department: Room: 447 P Gender: M Press Machine Feeder: rubens : 1940 Requested By: Rosa Bower Order Number: [id number] MD: Stevie Charlton Measurements Intervals [place] Rate: 133 P: 0 NV: QRS: 91 QRSD: 207 T: 264 QT: 424 QTc: 631 Interpretive Statements Ventricular tachycardia Compared to ECG 05/22/2019 16:39:26 Wide complex tachycardia has replaced ventricular pacing Electronically Signed On 05-25-2019 8:13:09 DIGITAL HARDWARE DESIGN ENGINEER by Stevie Charlton [email or web address] <ELECTRONICALLY SIGNED> By: Stevie Charlton MD, FACC 05/25/19 0813 0029 0029 Stevie Charlton MD, [facility] /EPI
--- NOTE | 2019-05-25 08:15 | EKG ---
[facility] [place] [address] ELECTROCARDIOGRAM REPORT Name: JAGUAR SAMANO Room #: 447-P ADM IN M.R.#: [id number] Admission: 05/22/19 Attend Phys: Dwayne Murillo MD Discharge: Date of : 42 Report #: [id number] THIS REPORT FOR: cc: Donato Joya James A. DO Lundgren,Stevie Toure MD [facility] ~ THIS REPORT FOR: //name// [facility] Test Date: 2019-05-25 Test Time: 00:31:45 Pat Name: JAGUAR SAMANO Department: Room: 447 P Gender: M Virtual Customer Assistant: rubens : 1940 Requested By: Rosa Bower Order Number: [id number] MD: Stevie Charlton Measurements Intervals [place] Rate: 128 P: AR: QRS: 91 QRSD: 206 T: 263 QT: 436 QTc: 637 Interpretive Statements Ventricular tachycardia Compared to ECG 05/22/2019 16:39:26 No significant change was found Electronically Signed On 05-25-2019 8:13:54 TEACHER DRAMA by Stevie Charlton [email or web address] <ELECTRONICALLY SIGNED> By: Stevie Charlton MD, FAC 05/25/19 0813 003 Stevie Charlton MD, [facility] /EPI
[2019-05-25 08:17] VITALS: BP 96/60
--- NOTE | 2019-05-25 08:18 | EKG ---
[facility] [place] [address] ELECTROCARDIOGRAM REPORT Name: JAGUAR SAMANO Room #: 447-P ADM IN M.R.#: [id number] Admission: 05/22/19 Attend Phys: Dwayne Murillo MD Discharge: Date of : 42 Report #: [id number] THIS REPORT FOR: cc: Donato Joya James A. DO Lundgren,Stevie Toure MD [facility] ~ THIS REPORT FOR: //name// [facility] Test Date: 2019-05-25 Test Time: 00:37:07 Pat Name: JAGUAR SAMANO Department: Room: 447 P Gender: M Calender Wind Up Helper: rubens : 1940 Requested By: Rosa Bower Order Number: [id number] MD: Stevie Charlton Measurements Intervals [place] Rate: 129 P: 0 WI: QRS: 91 QRSD: 201 T: 264 QT: 428 QTc: 628 Interpretive Statements Ventricular tachycardia Compared to ECG 05/22/2019 16:39:26 No significant change was found Electronically Signed On 05-25-2019 8:17:23 VESSEL MASTER by Stevie Charlton [email or web address] <ELECTRONICALLY SIGNED> By: Stevie Charlton MD, FAC 05/25/19 0817 0037 003 Stevie Charlton MD, [facility] /EPI
[2019-05-25 09:58] LABS: CALCIUM 9.3 mg/dL (8.5-10.1); CREATININE 1.3 mg/dL (0.7-1.3); POTASSIUM 4.1 mmol/L (3.5-5.1)
--- NOTE | 2019-05-25 12:36 | NUR ---
ASSESSMENT-PT LIVES AT HOME AND HE HAS 2 OTHER PEOLE THAT LIVE WITH HIM. PT SAYS HE WALKS ON HIS OWN AND DOES HIS OWN ADLS. HE DRIVES. PT SAYS HE USES NO DME AND HAS NOT HAD ANY HH SERVICES. PT SAYS HE HAS A JAVA TECH LEAD THAT HELPS HIM NEEDED. 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 NO DC NEEDS ANTICIPATED. PT TELLS ME HE IS GOING HOME TODAY AND DENIES ANY DC NEEDS AT THIS TIME.
[2019-05-25] MEDS ORDERED: MUCINEX600 MG PO (13:23)
[2019-05-25] MEDS ORDERED: CEFDINIR300 MG PO (13:23)
[2019-05-25] MEDS ORDERED: PREDNISONE 20 M20 MG PO (13:23)
[2019-05-25 13:36] VITALS: BP 95/61
--- NOTE | 2019-05-25 14:19 | NUR ---
DR FRAGOSO HERE TO SEE PATIENT GAVE ORDER FOR [id number] MG XS 1 ALSO WANTS TO SEE PATIENT I WEEK AFTER DISCHARGE
[2019-05-25 15:42] VITALS: BP 95/61
[2019-05-25 17:34] VITALS: BP 95/61
--- NOTE | 2019-05-25 17:39 | NUR ---
PT DISCHARGED AT THIS TIME. ALL BELONGINGS PACKED AND SENT WITH PATIENT. PT GIVEN 1700 MEDS AND INHALER. PT 'S BLOOD SUGAR CHECKED WAS CHECKED NO S/S INDICATED. FRIEND THAT CAME TO HARDENING MACHINE OPERATOR HELPER STATED WOULD MAKE APPT FOR PATIENT TOMMOROW.
== END 2019-05-25 17:44 | disposition home or self-care (01) | DRG 193 ==
LOC: ER 16:22 → 4S 18:34 → EROBS 18:34 → 4S 19:51 → ENTRNSPT 05-25 17:08 → 4S 05-25 17:44
PROVIDERS: Internal Medicine; Physical Medicine & Rehabilitation; Physician Assistant; ADMIT Hospitalist
DX: J18.9 Pneumonia, unspecified organism (principal); J96.00 Acute respiratory failure, unspecified whether with hypoxia or hypercapnia; J44.1 Chronic obstructive pulmonary disease with (acute) exacerbation; I42.8 Other cardiomyopathies; I13.0 Hypertensive heart and chronic kidney disease with heart failure and stage 1 through stage 4 chronic kidney disease, or unspecified chronic kidney disease; J44.0 Chronic obstructive pulmonary disease with (acute) lower respiratory infection; D72.829 Elevated white blood cell count, unspecified; I50.9 Heart failure, unspecified; E87.6 Hypokalemia; I25.10 Atherosclerotic heart disease of native coronary artery without angina pectoris; E78.5 Hyperlipidemia, unspecified; I44.7 Left bundle-branch block, unspecified; E83.42 Hypomagnesemia; N18.2 Chronic kidney disease, stage 2 (mild); E66.9 Obesity, unspecified; G50.0 Trigeminal neuralgia; Z95.810 Presence of automatic (implantable) cardiac defibrillator; Z68.27 Body mass index [BMI] 27.0-27.9, adult; Z79.2 Long term (current) use of antibiotics; Z79.891 Long term (current) use of opiate analgesic; Z79.899 Other long term (current) drug therapy; Z79.82 Long term (current) use of aspirin
CPT/HCPCS: 10195

== ENCOUNTER → 2019-06-05 | Outpatient (CLI) | payer OTHER ==
[~2019-06-05] MED LIST changes: +CEFDINIR300 MG PO; +MUCINEX600 MG PO; +PREDNISONE 20 M20 MG PO
== END ==
LOC: SJCVC 13:57
DX: R94.31 Abnormal electrocardiogram [ECG] [EKG] (principal); I49.49 Other premature depolarization; I42.0 Dilated cardiomyopathy; I11.0 Hypertensive heart disease with heart failure; I50.9 Heart failure, unspecified; I25.10 Atherosclerotic heart disease of native coronary artery without angina pectoris; G50.0 Trigeminal neuralgia; E78.00 Pure hypercholesterolemia, unspecified; Z95.0 Presence of cardiac pacemaker; Z79.899 Other long term (current) drug therapy

== ENCOUNTER 2019-11-26 19:51 | Emergency (ER) | payer OTHER, MEDICARE ==
[~2019-11-26] VITALS: Ht 180.3 cm; Wt 108.9 kg
[2019-11-26 20:44] VITALS: BP 125/72
== END 2019-11-26 20:55 | disposition home or self-care (01) ==
LOC: ER 19:51
DX: G50.0 Trigeminal neuralgia (principal); K08.89 Other specified disorders of teeth and supporting structures; I11.0 Hypertensive heart disease with heart failure; I50.9 Heart failure, unspecified; I25.10 Atherosclerotic heart disease of native coronary artery without angina pectoris; E66.9 Obesity, unspecified; Z68.33 Body mass index [BMI] 33.0-33.9, adult; Z79.899 Other long term (current) drug therapy; Z79.2 Long term (current) use of antibiotics

== ENCOUNTER 2019-12-13 22:04 | Emergency (ER) | payer OTHER, MEDICARE ==
[~2019-12-13] VITALS: Ht 177.8 cm; Wt 108.9 kg
[2019-12-13] MEDS ORDERED: GABAPENTIN 100100 MG PO (22:16)
[2019-12-13] MEDS ORDERED: HYDROCODON-ACE1 EAC7 PO (22:18)
[2019-12-13] MEDS ORDERED: EDARBYCLOR 40-1 EAC1 PO (22:18)
[2019-12-13] MEDS ORDERED: TRAZODONE HCL50 MG PO (22:18)
[2019-12-14] VITALS: BP 183/80
--- NOTE | 2019-12-14 08:05 | EKG ---
[facility] [place] [address] ELECTROCARDIOGRAM REPORT Name: JAGUAR SAMANO Room #: [facility]P [facility].#: [id number] Admission: 12/13/19 Attend Phys: Discharge: 12/14/19 Date of : 42 Report #: [id number] THIS REPORT FOR: cc: Donato Joya James A. DO Lundgren, Craig H. 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: [facility] : 1940 Requested By: Ortega Field Order Number: [id number] MD: Stevie Charlton Measurements Intervals [place] Rate: 81 P: 59 WI: 190 QRS: 174 QRSD: 174 T: 56 QT: 465 QTc: 540 Interpretive Statements Atrial-sensed ventricular-paced rhythm No further analysis attempted due to paced rhythm Compared to ECG 05/25/2019 00:37:07 Ventricular tachycardia no longer present Electronically Signed On 12-14-2019 8:05:32 CDT by Stevie Charlton [email or web address] <ELECTRONICALLY SIGNED> By: Stevie Charlton MD, [facility] 12/14/19 0805 [id number] Stevie Charlton MD, [facility] /EPI
== END 2019-12-14 00:02 | disposition short-term general hospital (02) ==
LOC: ER 22:04
DX: S01.01XA Laceration without foreign body of scalp, initial encounter (principal); M54.6 Pain in thoracic spine; I11.0 Hypertensive heart disease with heart failure; I50.9 Heart failure, unspecified; I25.10 Atherosclerotic heart disease of native coronary artery without angina pectoris; Z79.82 Long term (current) use of aspirin; Z79.899 Other long term (current) drug therapy; W10.9XXA Fall (on) (from) unspecified stairs and steps, initial encounter; Y93.89 Activity, other specified; Y92.89 Other specified places as the place of occurrence of the external cause; Y99.8 Other external cause status

== ENCOUNTER → 2020-04-14 | Outpatient (CLI) | payer OTHER, MEDICARE ==
[~2020-04-14] MED LIST changes: +GABAPENTIN 100100 MG PO; +HYDROCODON-ACE1 EAC7 PO; +TRAZODONE HCL50 MG PO
== END ==
LOC: SJCVCIMAG 13:42
PROVIDERS: ATTEND Internal Medicine Cardiovascular Disease
DX: I07.1 Rheumatic tricuspid insufficiency (principal); I25.5 Ischemic cardiomyopathy; I25.10 Atherosclerotic heart disease of native coronary artery without angina pectoris; E78.00 Pure hypercholesterolemia, unspecified; I11.0 Hypertensive heart disease with heart failure; I50.9 Heart failure, unspecified; I44.7 Left bundle-branch block, unspecified; Z95.0 Presence of cardiac pacemaker; Z79.899 Other long term (current) drug therapy

== ENCOUNTER → 2020-11-09 | Outpatient (CLI) | payer OTHER, MEDICARE | LOC: SJCVC 10:04 | PROVIDERS: ATTEND Internal Medicine Cardiovascular Disease | DX: I25.10 Atherosclerotic heart disease of native coronary artery without angina pectoris (principal); E78.00 Pure hypercholesterolemia, unspecified; I25.5 Ischemic cardiomyopathy; I44.7 Left bundle-branch block, unspecified; I11.0 Hypertensive heart disease with heart failure; I50.9 Heart failure, unspecified; I42.0 Dilated cardiomyopathy; E78.5 Hyperlipidemia, unspecified; Z95.0 Presence of cardiac pacemaker; Z79.899 Other long term (current) drug therapy; Z86.79 Personal history of other diseases of the circulatory system ==

== ENCOUNTER 2020-11-24 20:43 | Emergency (ER) | payer OTHER ==
[~2020-11-24] VITALS: Ht 180.3 cm; Wt 108.9 kg
[2020-11-24] MEDS ORDERED: NAPROSYN500 M1 PO (22:11)
[2020-11-24 22:57] VITALS: BP 176/81
== END 2020-11-24 22:57 | disposition home or self-care (01) ==
LOC: ER 20:43
DX: S13.9XXA Sprain of joints and ligaments of unspecified parts of neck, initial encounter (principal); I11.0 Hypertensive heart disease with heart failure; I50.9 Heart failure, unspecified; I25.10 Atherosclerotic heart disease of native coronary artery without angina pectoris; E78.5 Hyperlipidemia, unspecified; E66.9 Obesity, unspecified; Z68.33 Body mass index [BMI] 33.0-33.9, adult; Z98.890 Other specified postprocedural states; Z79.51 Long term (current) use of inhaled steroids; Z79.899 Other long term (current) drug therapy; Z79.1 Long term (current) use of non-steroidal anti-inflammatories (NSAID); Z79.82 Long term (current) use of aspirin; V49.9XXA Car occupant (driver) (passenger) injured in unspecified traffic accident, initial encounter; Y93.89 Activity, other specified; Y92.89 Other specified places as the place of occurrence of the external cause; Y99.8 Other external cause status

== ENCOUNTER 2021-03-01 15:13 | Emergency (ER) | payer OTHER ==
[~2021-03-01] VITALS: Ht 180.3 cm; Wt 108.9 kg
[~2021-03-01 15:13] MED LIST changes: +NAPROSYN500 M1 PO
[2021-03-01 16:19] LABS: ABSOLUTE NEUTROPHILS 4.1 thou/uL (1.4-8.2); BASOPHILS 0.8 % (0.0-2.0); HEMATOCRIT 38.6 % (42.0-52.0); MCH 32.5 pg (26.0-34.0); MCHC 33.7 g/dL (28.0-37.0); MCV 96.4 fL (80.0-100.0); MONOCYTES 10.3 % (1.0-8.0); PLATELET COUNT 194 thou/uL (150-400); POLYS 63.9 % (36.0-66.0); RBC 4.01 mil/uL (4.50-6.00); RDW 14.2 % (10.5-14.5); WBC 6.5 thou/uL (4.0-11.0)
[2021-03-01 16:38] LABS: CALCIUM 8.9 mg/dL (8.5-10.1); CREATININE 1.2 mg/dL (0.7-1.3); POTASSIUM 3.9 mmol/L (3.5-5.1)
[2021-03-01 16:43] LABS: ALBUMIN 3.3 g/dL (3.4-5.0); TOTAL BILIRUBIN 0.2 mg/dL (0.2-1.0); TOTAL PROTEIN 7.2 g/dL (6.4-8.2)
[2021-03-01] MEDS ORDERED: LASIX 40 MG TAB40 MG PO (17:17)
[2021-03-01 17:34] VITALS: BP 147/84
--- NOTE | 2021-03-02 08:48 | EKG ---
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 03/02/21 0848 10 1711 Stevie Charlton MD, [facility] /EPI
== END 2021-03-01 17:35 | disposition home or self-care (01) ==
LOC: ER 15:13
PROVIDERS: Emergency Medicine
DX: R06.00 Dyspnea, unspecified (principal); Z20.822 Contact with and (suspected) exposure to COVID-19; I11.0 Hypertensive heart disease with heart failure; I50.9 Heart failure, unspecified; I25.10 Atherosclerotic heart disease of native coronary artery without angina pectoris; E66.9 Obesity, unspecified; Z98.890 Other specified postprocedural states; Z68.33 Body mass index [BMI] 33.0-33.9, adult; Z79.51 Long term (current) use of inhaled steroids; Z79.82 Long term (current) use of aspirin; Z79.891 Long term (current) use of opiate analgesic; Z79.899 Other long term (current) drug therapy